=== PATIENT | male | born 1995 | race Caucasian/White ===

== ENCOUNTER 2022-05-17 07:21 | Emergency (ER) | payer OTHER, SELFPAY ==
[2022-05-17] VITALS (13 sets, daily range): BP systolic 120–152; BP diastolic 65–96; PULSE 105–137; RESP 18; TEMP 37.9–39.4; O2SAT 94–98; BMI 24.7
[2022-05-17] MEDS: 0.9 % SODIUM CHLORIDE 1000 ml 1,000 ML IV (08:00)
--- NOTE | 2022-05-17 08:06 | XR_ITS ---
Patient: BRIDGET WORRELL Facility:?[facility] Patient ID:?[id number] Site Patient [id number]:?[id number]. Site :?[id number] Study:?XRay-Chest Portable 1 view-05/17/2022 8:56:32 AM Ordering Physician:Erwin Macedo Final Report: INDICATION: Chest pain. TECHNIQUE: Chest 1 views. COMPARISON: None. FINDINGS: Cardiovascular and mediastinum: Heart size and vasculature are normal in caliber and appearance. Lungs and pleural spaces: Lungs are clear. No sign of infiltrate or mass. No sign of pleural effusion. No pneumothorax. Bones and soft tissues: No significant findings. IMPRESSION: No acute or significant findings. Dictated by Tarun Barnard MD @ 05/17/2022 9:00:04 AM Signed by:?Tarun Barnard MD @05/17/2022 9:00:04 AM (Electronic Signature)
--- NOTE | 2022-05-17 08:08 | ED.GENADULT ---
HPI - General Adult General Time Seen by Provider: 08:08 Date Seen: 05/17/22 Chief complaint: Nausea/Vomiting Stated complaint: Fever/vomiting/unable to keep anything down Time Seen by Provider: 05/17/22 08:05 Source: patient, family and RN notes reviewed Mode of arrival: ambulatory Limitations: no limitations History of Present Illness HPI narrative: 27-year-old male who comes in today with fever, nausea, vomiting. This been going on for 3 days. Review of chart shows the patient seen at Urgent Care on the with flu-like symptoms. Additionally, he says about 3 weeks ago he had a fever for about 2 weeks that resolved. He says he has runny nose, slight cough. No abdominal pain, no diarrhea. No chest pain or shortness of breath. Has been taking Tylenol and ibuprofen alternating every 4 hours. Has not taken anything for nausea vomiting. No ill contacts. Related Data Previous Rx's Medication Instructions Recorded ondansetron 4 mg disintegrating 4 mg PO Q6H #20 tabs 05/17/22 tablet Allergies Allergy/AdvReac Type Severity Reaction Status Date / Time No Known Drug Allergies Allergy Verified 05/10/22 13:08 Review of Systems Status of ROS: Reports: 10 or more systems reviewed and unremarkable except as noted in History and below PFSH PFS Social History Smoking Status: Never smoker Second hand tobacco smoke exposure: No How often do you have a drink containing alcohol: 2-4 times a month AUDIT-C Alcohol total score: 2 Non-prescribed substance use: denies use service: No Exam Narrative: Exam Narrative: General: Well-developed and well-nourished, no acute distress Head: Atraumatic and normocephalic Eyes: Pupils are equal reactive, extraocular motions intact, conjunctiva clear ENT: External nose and ears are normal, posterior pharynx without erythema or exudate Neck: No midline cervical tenderness, full spontaneous range of motion the neck, trachea midline, no adenopathy Heart: Tachycardic but regular with 3 of 6 systolic murmur Lungs: Clear to auscultation bilaterally without wheezes or crackles Abdomen: Soft, nontender, nondistended with active bowel sounds Musculoskeletal: No tenderness, deformity, or edema Neurologic: Awake, alert, and oriented x3, no gross focal neurologic deficits, cranial nerves intact as tested Psych: Mood and affect are appropriate Skin: No rashes Const: Vital Signs, click to edit/add: Vital Signs - 24 hr 05/17/22 07:36 05/17/22 08:21 05/17/22 08:03 Temperature 101.2 F H 103 F H Pulse Rate 119 H Pulse Rate [Right Pulse Oximeter] 137 H Respiratory Rate 18 Blood Pressure 152/96 H Blood Pressure [Ri ght Upper Arm] 120/73 Pulse Oximetry 98 96 Oxygen Delivery Me thod Room Air 05/17/22 08:04 05/17/22 08:30 05/17/22 08:32 Temperature Pulse Rate 119 H 112 H 111 H Pulse Rate [Right Pulse Oximeter] Respiratory Rate Blood Pressure 144/80 H Blood Pressure [Ri ght Upper Arm] Pulse Oximetry 95 96 97 Oxygen Delivery Me thod 05/17/22 08:33 05/17/22 09:00 05/17/22 09:02 Temperature 100.3 F H Pulse Rate 111 H 113 H 112 H Pulse Rate [Right Pulse Oximeter] Respiratory Rate Blood Pressure 132/76 Blood Pressure [Ri ght Upper Arm] Pulse Oximetry 97 95 94 Oxygen Delivery Me thod 05/17/22 09:03 05/17/22 09:30 05/17/22 09:32 Temperature Pulse Rate 114 H 105 H 105 H Pulse Rate [Right Pulse Oximeter] Respiratory Rate Blood Pressure 134/65 Blood Pressure [Ri ght Upper Arm] Pulse Oximetry 94 94 95 Oxygen Delivery Me thod Course Course Hospital Course: Patient seen and examined, prior records reviewed. Differential diagnosis includes but not limited to influenza, COVID, pneumonia, sepsis, intra-abdominal infection, urinary tract infection, medication reaction. Patient presents with fever, nausea, vomiting for 3 days. Other than tachycardia which likely related to his fever, patient does have a slight heart murmur which likely is a flow murmur. Lungs are clear, no abdominal tenderness. Denies urinary symptoms. Because of history of fever couple weeks ago as well as heart murmur on exam today, more extensive examination will be done although symptoms seem most consistent with viral syndrome. Reevaluation(s) Reevaluation #1: Labs reviewed and interpreted by me. AST and ALT are slightly elevated which may related to vomiting or viral infection. COVID and influenza are negative. Lactate is normal. White blood cell count is normal. Chest x-ray is negative for acute findings. Overall evaluation does not show evidence for severe bacterial infection, and seems most consistent with viral syndrome. Blood cultures are still pending. Continue symptom management and patient will be discharged with Cj to help with this. Vital Signs Vital signs: Initial Vital Signs Temperature 101.2 F H 05/17/22 07:36 Temperature Source Temporal Artery Scan 05/17/22 07:36 Pulse Rate 137 H 05/17/22 07:36 Respiratory Rate 18 05/17/22 07:36 Blood Pressure 120/73 05/17/22 07:36 Blood Pressure Mean 88 05/17/22 07:36 Blood Pressure Position Sitting 05/17/22 07:36 Pulse Oximetry 98 05/17/22 07:36 Oxygen Delivery Method 05/17/22 07:36 Vital Signs Temperature 101.2 F H 05/17/22 07:36 Pulse Rate 137 H 05/17/22 07:36 Respiratory Rate 18 05/17/22 07:36 Blood Pressure 120/73 05/17/22 07:36 Pulse Oximetry 98 05/17/22 07:36 Oxygen Delivery Method 05/17/22 07:36 Temperature 100.3 F H 05/17/22 09:02 Pulse Rate 105 H 05/17/22 09:32 Respiratory Rate 18 05/17/22 07:36 Blood Pressure 134/65 05/17/22 09:32 Pulse Oximetry 95 05/17/22 09:32 Oxygen Delivery Method 05/17/22 07:36 Medical Decision Making Medical Records Medical records reviewed: Yes I reviewed the patient's medical records Lab Data Lab results reviewed: Yes I reviewed the patient's lab results Labs: Lab Results 05/17/22 05/17/22 05/17/22 Range/Units 07:50 07:50 07:50 WBC 10.76 (4.50-11.00) K/uL RBC 5.48 (4.30-5.90) m/uL Hgb 15.6 (13.5-17.5) gm/dL Hct 45.5 (37.0-53.0) % MCV 83 (80-100) fL MCH 29 (26-34) pg MCHC 34 (32-36) gm/dL RDW Coeff of Rufina 11.5 (11.5-15.5) % Plt Count 179 (140-440) K/uL Neut % (Auto) 67.5 (42.0-72.0) % Lymph % (Auto) 13.1 L (20-44) % Chester % (Auto) 18.9 H (0.0-11.0) % Eos % (Auto) 0.1 (0.0-7.0) % Baso % (Auto) 0.2 (0.0-3.0) % Neut # (Auto) 7.27 H (1.7-7.0) K/uL Lymph # (Auto) 1.40 (0.90-2.90) K/uL Chester # (Auto) 2.00 H (0.00-0.90) K/UL Eos # (Auto) 0.01 (0.00-0.50) K/uL Baso # (Auto) 0.02 (0.00-0.30) K/uL Diff Slide Review Acceptable Review (Acceptable) Sodium 139 (135-149) mmol/L Potassium 3.9 (3.6-5.1) mmol/L Chloride 102 (96-114) mmol/L Carbon Dioxide 28 (20-32) mmol/L BUN 19 (5-24) mg/dL Creatinine 1.2 (0.5-1.5) mg/dL Estimated Creat Clear 102.39 Estimated GFR 86 ml/min Glucose 125 H (60-115) mg/dL Lactate 1.5 (0.5-1.9) mmol/L Calcium 9.3 (8.4-10.6) mg/dL Total Bilirubin 1.1 (0.1-1.5) mg/dL Direct Bilirubin 0.3 (0.0-0.5) mg/dL AST 54 H (12-35) U/L ALT 71 H (4-50) U/L Alkaline Phosphatase 111 (40-150) U/L Total Protein 8.2 (6.0-8.3) g/dL Albumin 4.7 (3.3-5.0) g/dL SARS-CoV-2 (PCR) (Negative) Influenza Type A (PCR) (Negative) Influenza Type B (PCR) (Negative) RSV (PCR) (Negative) 05/17/22 Range/Units 07:58 WBC (4.50-11.00) K/uL RBC (4.30-5.90) m/uL Hgb (13.5-17.5) gm/dL Hct (37.0-53.0) % MCV (80-100) fL MCH (26-34) pg MCHC (32-36) gm/dL RDW Coeff of Rufina (11.5-15.5) % Plt Count (140-440) K/uL Neut % (Auto) (42.0-72.0) % Lymph % (Auto) (20-44) % Chester % (Auto) (0.0-11.0) % Eos % (Auto) (0.0-7.0) % Baso % (Auto) (0.0-3.0) % Neut # (Auto) (1.7-7.0) K/uL Lymph # (Auto) (0.90-2.90) K/uL Chester # (Auto) (0.00-0.90) K/UL Eos # (Auto) (0.00-0.50) K/uL Baso # (Auto) (0.00-0.30) K/uL Diff Slide Review (Acceptable) Sodium (135-149) mmol/L Potassium (3.6-5.1) mmol/L Chloride (96-114) mmol/L Carbon Dioxide (20-32) mmol/L BUN (5-24) mg/dL Creatinine (0.5-1.5) mg/dL Estimated Creat Clear Estimated GFR ml/min Glucose (60-115) mg/dL Lactate (0.5-1.9) mmol/L Calcium (8.4-10.6) mg/dL Total Bilirubin (0.1-1.5) mg/dL Direct Bilirubin (0.0-0.5) mg/dL AST (12-35) U/L ALT (4-50) U/L Alkaline Phosphatase (40-150) U/L Total Protein (6.0-8.3) g/dL Albumin (3.3-5.0) g/dL SARS-CoV-2 (PCR) Negative SARS-CoV-2 (Negative) Influenza Type A (PCR) Negative PCR FLU A (Negative) Influenza Type B (PCR) Negative PCR FLU B (Negative) RSV (PCR) Negative PCR RSV (Negative) Discharge Plan Discharge Clinical Impression: Influenza-like illness Patient Disposition: Home, Self-Care Condition: Stable Instructions: Fever in Adults (ED), Acute Nausea and Vomiting (ED) Additional Instructions: Continue Tylenol and ibuprofen alternating every 3 hours for fever. Take Zofran as needed for nausea vomiting. Activity Level: No Restrictions Discharge Diet: Regular Prescriptions: New ondansetron 4 mg tablet,disintegrating 4 mg PO Q6H Qty: 20 0RF Follow Up/Referrals: Everardo Bedolla MD [Staff Physician] - Stand Alone Forms: Pathagility Info Instructions
[2022-05-17 08:15] LABS: Lactate* 1.5 mmol/L (0.5-1.9)
[2022-05-17] MEDS: ACETAMINOPHEN 500 MG TABLET 1000 MG PO (08:21)
[2022-05-17] MEDS: ONDANSETRON 2 MG/ML inj 4 MG IVP (08:22)
[2022-05-17 08:27] LABS: Basophils Absolute Auto 0.02 K/uL (0.00-0.30); Basophils Percent Auto 0.2 % (0.0-3.0); Eosinophils Absolute Auto 0.01 K/uL (0.00-0.50); Eosinophils Percent Auto 0.1 % (0.0-7.0); Hematocrit 45.5 % (37.0-53.0); Hemoglobin* 15.6 gm/dL (13.5-17.5); Immature Granulocytes Abs Auto 0.02 K/uL (0.00-0.30); Immature Granulocytes Pct Auto 0.2 %; Lymphocytes Percent Auto 13.1 % (20-44); Mean Corpuscular HGB Conc 34 gm/dL (32-36); Mean Corpuscular Hemoglobin 29 pg (26-34); Mean Corpuscular Volume 83 fL (80-100); Monocytes Percent Auto 18.9 % (0.0-11.0); Neutrophils Absolute Auto 7.27 K/uL (1.7-7.0); Neutrophils Percent Auto 67.5 % (42.0-72.0); Platelet Count* 179 K/uL (140-440); RDW Coefficient of Variation % 11.5 % (11.5-15.5); Red Blood Count 5.48 m/uL (4.30-5.90); White Blood Count* 10.76 K/uL (4.50-11.00)
[2022-05-17 08:29] LABS: Slide Review Reflex Yes
[2022-05-17 08:31] LABS: Albumin* 4.7 g/dL (3.3-5.0)
[2022-05-17 08:32] LABS: Chloride* 102 mmol/L (96-114); Potassium* 3.9 mmol/L (3.6-5.1)
[2022-05-17 08:34] LABS: Aspartate Amino Transferase* 54 U/L (12-35); Bilirubin Direct* 0.3 mg/dL (0.0-0.5); Bilirubin Total* 1.1 mg/dL (0.1-1.5); Blood Urea Nitrogen* 19 mg/dL (5-24); Carbon Dioxide* 28 mmol/L (20-32); Creatinine* 1.2 mg/dL (0.5-1.5); Est. Creatinine Clearance* 102.39; Estimated Glomerular Filt Rate 86 ml/min; Total Protein* 8.2 g/dL (6.0-8.3)
[2022-05-17 08:35] LABS: Alanine Aminotransferase* 71 U/L (4-50); Alkaline Phosphatase* 111 U/L (40-150); Calcium* 9.3 mg/dL (8.4-10.6); Glucose* 125 mg/dL (60-115)
[2022-05-17 08:38] LABS: Sodium* 139 mmol/L (135-149)
[2022-05-17 09:08] LABS: PCR FLU A Negative PCR FLU A (Negative); PCR FLU B Negative PCR FLU B (Negative); PCR RSV Negative PCR RSV (Negative)
[2022-05-17 09:17] LABS: SARS PCR* Negative SARS-CoV-2 (Negative)
[2022-05-17 09:20] LABS: Slide Review Acceptable Review (Acceptable)
--- NOTE | 2022-05-17 09:51 | PC.NURSE ---
Patient was discharged from ER. Instructions provided to patient. Prescription for Zofran provided to patient. PIV taken out and catheter intact. All questions answered. Left via ambulatory.
== END 2022-05-17 09:53 | disposition home or self-care (01) ==
PROVIDERS: Emergency Provider Family Medicine; PCP Family Medicine
DX: J10.1 Influenza due to other identified influenza virus with other respiratory manifestations (principal)
CPT/HCPCS: 36415; 71045; 80048; 80076; 83605; 85025; 87040; 87502; 87634; 87635; 96374; 99284; A9270; J2405; J7030

== ENCOUNTER 2023-01-25 08:39 | Outpatient (CLI) | payer OTHER, SELFPAY | END 2023-01-25 08:40 | disposition home or self-care (01) | PROVIDERS: PCP Family Medicine; Visit Provider Emergency Medicine | DX: Z00.00 Encounter for general adult medical examination without abnormal findings (principal); R03.0 Elevated blood-pressure reading, without diagnosis of hypertension; R74.01 Elevation of levels of liver transaminase levels; Z13.6 Encounter for screening for cardiovascular disorders; Z90.79 Acquired absence of other genital organ(s) | CPT/HCPCS: 80053; 80061; 84270; 84402; 84403 ==